=== PATIENT | female | born 1955 | race Caucasian/White ===

== ENCOUNTER 2017-01-18 10:58 | Emergency (ER) | payer OTHER ==
[~2017-01-18] VITALS: Ht 152.4 cm; Wt 59.0 kg
[~2017-01-18 10:58] MED LIST: ALEN35TA PO; BUPR8TAB SL; DICY10CA37 PO; HYDR8TAB2 PO; ONDA4TAB8 PO
[2017-01-18 11:10] VITALS: BP 126/71
[2017-01-18 11:36] LABS: APPEARANCE,URINE Turbid (CLEAR); BILIRUBIN,URINE Negative (NEGATIVE); BLOOD, URINE Moderate Ery/uL (NEGATIVE); COLOR,URINE Dark (YELLOW); KETONES,URINE Negative (NEGATIVE); LEUKOCYTE ESTERASE ,URINE Trace (NEGATIVE); NITRITE, URINE Positive (NEGATIVE); PROTEIN,URINE 30 mg/dl (NEGATIVE)
[2017-01-18 11:37] LABS: UGLUCOSE 100 MG/DL mg/dL (NEGATIVE)
[2017-01-18 11:46] LABS: ADD URINE CULTURE YES; BACTERIA,URINE Rare /HPF (None Seen); RBC,URINE 0-2 /HPF (0-2); SQUAMOUS EPITHELIAL CELL,UR Few /HPF (None Seen)
== END 2017-01-18 11:37 | disposition home or self-care (01) ==
LOC: ER 11:00
DX: N39.0 Urinary tract infection, site not specified (principal); Z85.41 Personal history of malignant neoplasm of cervix uteri; Z90.13 Acquired absence of bilateral breasts and nipples; Z90.89 Acquired absence of other organs; Z88.6 Allergy status to analgesic agent; Z88.8 Allergy status to other drugs, medicaments and biological substances; F17.200 Nicotine dependence, unspecified, uncomplicated
CPT/HCPCS: 81001; 87086; 99284; A4606; Z7610; 81000-TC

== ENCOUNTER 2017-01-19 23:36 | Emergency (ER) | payer OTHER ==
[~2017-01-19] VITALS: Ht 152.4 cm; Wt 59.0 kg
[2017-01-19 23:47] VITALS: BP 122/72
[2017-01-20 00:18] LABS: APPEARANCE,URINE SL CLOUDY (CLEAR); BILIRUBIN,URINE 1+ (NEGATIVE); BLOOD, URINE 3+ Ery/uL (NEGATIVE); COLOR,URINE YELLOW (YELLOW); KETONES,URINE NEGATIVE (NEGATIVE); LEUKOCYTE ESTERASE ,URINE TRACE (NEGATIVE); NITRITE, URINE POSITIVE (NEGATIVE); PH,URINE 6.5 (5.0-8.0); PROTEIN,URINE 3+ mg/dl (NEGATIVE); UGLUCOSE TRACE mg/dL (NEGATIVE)
[2017-01-20 00:34] LABS: ADD URINE CULTURE YES; BACTERIA,URINE 1+ /HPF (None Seen); RBC,URINE 51-80 /HPF (0-2); SQUAMOUS EPITHELIAL CELL,UR Few /HPF (None Seen)
[2017-01-20 00:35] LABS: CALCIUM OXALATE CRYSTALS,UR Few /HPF (None Seen); MUCUS,URINE Few /LPF (None Seen)
== END 2017-01-20 01:07 | disposition home or self-care (01) ==
LOC: ER 23:37
DX: N39.0 Urinary tract infection, site not specified (principal); G89.29 Other chronic pain; F17.200 Nicotine dependence, unspecified, uncomplicated; Z85.41 Personal history of malignant neoplasm of cervix uteri; Z88.6 Allergy status to analgesic agent; Z88.8 Allergy status to other drugs, medicaments and biological substances
CPT/HCPCS: 81001; 99284; A4606; Z7610; 81000-TC; 87086-TC

== ENCOUNTER 2017-01-23 07:08 | Emergency (ER) | payer OTHER ==
[~2017-01-23] VITALS: Ht 152.4 cm; Wt 59.0 kg
--- NOTE | 2017-01-23 07:15 | NUR ---
PT BIB SELF; NOTICED LIP SWELLING LAST NIGHT S/P MACROBID, TOOK 1 BENADRYL. PER PT SHE HAS HX OF RECURRENT UTI. DENIES ANY PAIN. NO SOB. PT AMBULATORY STEADY GAIT. PLACED ON MONITOR. VSS.
--- NOTE | 2017-01-23 07:23 | NUR ---
AT BEDSIDE FOR EVAL
--- NOTE | 2017-01-23 07:42 | NUR ---
Patient discharged to home in stable condition. Written and verbal after care instructions given. Patient verbalizes understanding of instruction.
[2017-01-23 07:46] VITALS: BP 112/72
== END 2017-01-23 07:46 | disposition home or self-care (01) ==
LOC: ER 07:10
DX: R22.0 Localized swelling, mass and lump, head (principal); T37.8X5A Adverse effect of other specified systemic anti-infectives and antiparasitics, initial encounter; F17.200 Nicotine dependence, unspecified, uncomplicated; Z88.6 Allergy status to analgesic agent; Z88.8 Allergy status to other drugs, medicaments and biological substances; Z79.899 Other long term (current) drug therapy; Y92.9 Unspecified place or not applicable
CPT/HCPCS: 99283; A4606; Z7610

== ENCOUNTER 2021-08-26 01:23 | Emergency (ER) | payer OTHER ==
[~2021-08-26] VITALS: Ht 152.4 cm; Wt 59.0 kg
--- NOTE | 2021-08-26 01:32 | NUR ---
Pt bibself c/o r knee pain s/p trip and fall. Pt aaox4 breathing evenly and unlabored. Pt ambulatory. Pt attached to monitor and pox. MD at bedside. WIll cotninue to monitor.
--- NOTE | 2021-08-26 02:24 | NUR ---
xray at bedside
[2021-08-26] MEDS ORDERED: NAPROXEN 250 MG TABLET ONE (02:29)
[2021-08-26] MEDS ORDERED: NAPROXEN 250 MG TABLET PO ONE (02:30)
--- NOTE | 2021-08-26 02:53 | NUR ---
called ashley to have image read
--- NOTE | 2021-08-26 03:15 | NUR ---
called ashley to have image read, image on the hotline to be read
--- NOTE | 2021-08-26 03:50 | NUR ---
called ashley to have image read
--- NOTE | 2021-08-26 04:00 | NUR ---
Patient discharged to home in stable condition. Written and verbal after care instructions given. Patient verbalizes understanding of instruction. Pt ambulatory with a steady gait
[2021-08-26 04:23] VITALS: BP 114/77
== END 2021-08-26 04:00 | disposition home or self-care (01) ==
LOC: ER 01:27
DX: M25.561 Pain in right knee (principal); F17.200 Nicotine dependence, unspecified, uncomplicated; Z85.41 Personal history of malignant neoplasm of cervix uteri; Z85.3 Personal history of malignant neoplasm of breast; Z90.89 Acquired absence of other organs; Z90.13 Acquired absence of bilateral breasts and nipples; Z88.6 Allergy status to analgesic agent; Z88.5 Allergy status to narcotic agent; Z88.8 Allergy status to other drugs, medicaments and biological substances; Z79.899 Other long term (current) drug therapy
CPT/HCPCS: 73564-TC